=== PATIENT | male | born 1950 | race Caucasian/White ===

== ENCOUNTER → 2016-02-28 | Outpatient (CLI) | payer MEDICARE ==
[2016-02-28 16:40] LABS: Blood Urea Nitrogen 12 mg/dL (9-20); Non-African American GFR(MDRD) >60 (>60 ml/min/1.73 sqM)
--- NOTE | 2016-02-28 17:20 | CT ---
EXAMINATION TYPE: CT chest wo/w con DATE OF EXAM: 02/28/2016 5:05 PM COMPARISON: NONE HISTORY: Chest pain with cough and congestion for 2-[address] DLP: 566.6 mGycm Automated exposure control for dose reduction was used. CONTRAST: CT scan of the chest is performed with IV Contrast, patient injected with 100 mL of Omnipaque 300. Technique Multiple axial sections are obtained from the thoracic inlet to the diaphragm without and with IV con trast. FINDINGS: Lung bases are clear. There is no pleural effusion. Heart size is normal. There is no pericardial eff usion. The lungs are clear of infiltrate. There is no evidence of a pulmonary mass. I see no mediasti nal adenopathy. There are a few bronchial lymph nodes that measure up to 1.5 cm. There is a 2 cm low-density rounded lesion in the posterior right lobe of the liver that is probably a cyst. I see no filling defects in the pulmonary arteries. There is mild spurring in the thoracic sp ine. CONCLUSION: There are a few bilateral bronchial lymph nodes of doubtful significance. No evidence of bronchopneum onia. Normal heart.
== END | disposition home or self-care (01) ==
LOC: RADCTMAIN 02-23 18:25
PROVIDERS: ATTEND Internal Medicine Cardiovascular Disease
DX: R07.9 Chest pain, unspecified (principal)
CPT/HCPCS: 82565; 84520; 71270; 36415; Q9967

== ENCOUNTER → 2018-08-20 | Day surgery (SDC) | payer MEDICARE ==
[2018-08-18 11:33] VITALS: BMI 25.8
[~2018-08-20] MED LIST: LACTATED RINGERS 1,000 ML IV SCH; LIDOCAINE 1% 20 ML VIAL (10MG/ML) FOR IV START INTRADERMA PRN; PROPOFOL 10 MG/ML 20 ML VIAL IV ONE
[2018-08-20 13:05] VITALS: TEMP 97.5
--- NOTE | 2018-08-20 14:34 | P.PCN ---
Date of Procedure: 08/20/18 Procedure(s) Performed: Procedure: Total colonoscopy. Preoperative diagnosis: Screening for neoplasia, patient has history of polyps. Postoperative diagnosis: Sigmoid diverticulosis with no evidence of acute diverticulitis, strictures, polyps or cancer. Preparation: HalfLytely prep. Sedation: Was provided by anesthesia. Brief clinical history: The patient is a 68-year-old male who is scheduled for it evaluation for screening for neoplasia because of history of polyps. His last exam was in 2007. The patient has no abdominal complaints, bleeding or anemia. Procedure: With the patient on his left lateral decubitus position and after informed consent and adequate sedation, the perianal area was inspected and it did not show any fissures or fistulas. There were no masses felt on digital rectal examination. The Olympus CFH 190 L video colonoscope was then inserted in the rectum in the usual fashion and advanced to the cecum. There were multiple diverticular orifices seen scattered in the sigmoid but there was no evidence of acute diverticulitis or strictures. No polyps or tumors were seen or any other pathology. I retroflexed the endoscope in the rectum before the endoscope was withdrawn. The patient tolerated the procedure well. Plan: The patient was reassured. Discussed dietary measures. Consideration can be given for repeat exam in 5 years because of the history of polyps.
[2018-08-20 14:39] VITALS: RESP 20
[2018-08-20 14:55] VITALS: BP 156/76; PULSE 50
== END ==
LOC: ORWHC2ENDO 12:06
DX: Z12.11 Encounter for screening for malignant neoplasm of colon (principal); K57.30 Diverticulosis of large intestine without perforation or abscess without bleeding; Z86.010 Personal history of colon polyps; M19.90 Unspecified osteoarthritis, unspecified site; Z85.46 Personal history of malignant neoplasm of prostate; E78.5 Hyperlipidemia, unspecified; Z79.899 Other long term (current) drug therapy
CPT/HCPCS: J2704; G0105

== ENCOUNTER → 2022-02-16 | Outpatient (CLI) | payer MEDICARE ==
--- NOTE | 2022-02-16 21:49 | MR ---
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 Neck pain, dizziness. COMPARISON: None. TECHNIQUE: Multi planar, multi sequence imaging was performed utilizing: T1-weighted, T2-weighted, an d turbo inversion recovery imaging of the cervical spine. IV Contrast: None FINDINGS: Alignment: The cervical vertebral bodies have preserved heights. Alignment is within normal limits gi maksim patient positioning. Bones: Multilevel degenerative disc disease is noted and most pronounced at the C4-C7 vertebral level s with osteophyte formation and disc space narrowing. Scattered Modic endplate changes are present mo st pronounced at C5-C6. Cord: The spinal cord is unremarkable with regards to their signal intensity and morphology. Discs: Multilevel disc desiccation is present. C2-C3: No significant disc pathology. The spinal canal is patent. No neural foraminal stenosis. C3-C4: A disc osteophyte complex is present which minimally narrows the ventral subarachnoid space. Bilateral facet and uncovertebral joint arthropathy are present with severe left and moderate to sev ere right neural foraminal stenosis. C4-C5: A disc osteophyte complex is present with moderate spinal canal stenosis. Bilateral facet and uncovertebral joint arthropathy are present with moderate to severe bilateral neural foraminal steno sis. C5-C6: A disc osteophyte complex is present with moderate spinal canal stenosis. Bilateral facet and uncovertebral joint arthropathy are present with moderate to severe bilateral neural foraminal steno sis. C6-C7: A disc osteophyte complex is present with mild spinal canal stenosis. Bilateral facet and unc overtebral joint arthropathy are present with moderate bilateral neural foraminal stenosis. C7-T1: No significant disc pathology. The spinal canal is patent. No neural foraminal stenosis. Other: None. IMPRESSION: 1. No evidence for disc herniation. 2. C4-C5 and C5-C6 moderate spinal canal stenosis secondary to disc osteophyte complex. 3. Moderate to severe C4-C5 and C5-C6, moderate bilateral C6-C7, and severe left C3-C4 neural foramin al stenosis.
== END | disposition home or self-care (01) ==
LOC: RADMRIMAIN 08:28
PROVIDERS: ATTEND Neurological Surgery
DX: M47.812 Spondylosis without myelopathy or radiculopathy, cervical region (principal); M25.78 Osteophyte, vertebrae; M48.02 Spinal stenosis, cervical region; M99.71 Connective tissue and disc stenosis of intervertebral foramina of cervical region
CPT/HCPCS: 72141